=== PATIENT | female | born 1985 | race American Indian/Alaskan Native ===

== ENCOUNTER 2020-06-26 12:35 | Emergency (ER) | payer MEDICAID ==
[2020-06-26] MEDS ORDERED: ONDANSETRON 4 MG ODT TAB PO ONE (14:46)
--- NOTE | 2020-06-26 14:46 | Event Note ---
ED Screening Note ED Screening Note: n/v/d that began yesterday +chills abd cramping +dysuria had a partial hysterectomy on april 22 no fever PMHx none no allergies to meds no recent travel no sick contacts no recent abx This initial assessment/diagnostic orders/clinical plan/treatment(s) is/are subject to change based on patients health status, clinical progression and re- assessment by fellow clinical providers in the ED. Further treatment and workup at subsequent clinical providers discretion. Patient/guardian urged not to elope from the ED as their condition may be serious if not clinically assessed and managed. Initial orders include: labs, UA, zofran ODT
[2020-06-26 15:43] LABS: Basophils % (Auto) 0.2 % (0.0-1.8); Eosinophils % (Auto) 0.1 % (0.0-4.3); Hematocrit 43.7 % (30.3-42.9); Hemoglobin 14.5 gm/dl (10.1-14.3); Lymphocytes # (Auto) 0.5 K/mm3 (1.2-5.4); Lymphocytes % (Auto) 5.6 % (13.4-35.0); Mean Corpuscular HGB Conc 33 % (30-34); Mean Corpuscular Volume 93 fl (79-97); Monocytes # (Auto) 0.9 K/mm3 (0.0-0.8); Monocytes % (Auto) 10.4 % (0.0-7.3); Platelet Count 373 K/mm3 (140-440); Red Blood Count 4.68 M/mm3 (3.65-5.03); Red Cell Distribution Width 16.3 % (13.2-15.2)
[2020-06-26 16:05] LABS: Alanine Aminotransferase 11 units/L (7-56); Albumin 4.6 g/dL (3.9-5); Blood Urea Nitrogen 15 mg/dL (7-17); Calcium 10.4 mg/dL (8.4-10.2); Hemolysis Index 17
[2020-06-26 16:07] LABS: BUN/Creatinine Ratio 21
[2020-06-26 18:45] LABS: Hyaline Casts,Urine 12 /LPF; Mucus,Urine 3+ /HPF
[2020-06-26 18:49] LABS: Bilirubin,Urine NEG (Negative); Blood,Urine SM (Negative); Color,Urine Amber (Yellow); Urobilinogen,Urine < 2.0 mg/dL (<2.0)
[2020-06-26 18:50] LABS: Protein,Urine >500 mg/dL (Negative)
[2020-06-26] MEDS ORDERED: SODIUM CHLORIDE 0.9% 1000 ML 1,000 ML IV ONE (19:28)
[2020-06-26] MEDS ORDERED: FAMOTIDINE 20 MG/2 ML INJ IV ONE (19:28)
[2020-06-26] MEDS ORDERED: diphenhydrAMINE 50 MG/ML VIAL IV ONE (19:28)
[2020-06-26] MEDS ORDERED: MORPHINE 4 MG/1 ML INJ IV ONE (19:28)
[2020-06-26] MEDS ORDERED: METOCLOPRAMIDE 10 MG/2 ML INJ IV ONE (19:28)
--- NOTE | 2020-06-26 21:01 | Emergency Department Report ---
ED N/V/D HPI - General Chief complaint: Nausea/Vomiting/Diarrhea Stated complaint: ABD PAIN/N/V Time Seen by Provider: 06/26/20 14:44 Source: patient Mode of arrival: Ambulatory Limitations: No Limitations - History of Present Illness Initial comments: Patient is a 34-year-old -[place] female with no past medical history and who is status post partial hysterectomy 2 months ago presents to the ED with complaint of acute onset persistent nausea and vomiting with diarrhea and mild diffuse abdominal pain for the last 2 days. Patient states that the symptoms started about 2 days ago after having sexual intercourse with her . Patient also states that she had also taken a laxative for a suspected constipation 24 hours prior to the onset of the symptoms. Patient states that in the last 24 hours she has not been able to keep anything down because of persistent nausea and vomiting and diarrhea. Patient now complains of generalized weakness and fatigue and lack of appetite. Patient denies dizziness, syncope, chest pain, shortness of breath, dysuria, urinary frequency and urgency, vaginal bleeding, vaginal discharge, headache, sore throat, change in vision or hematemesis and hematochezia. MD complaint: nausea, vomiting, diarrhea, abdominal pain -: Sudden, days(s) (2) Description of Vomiting: food contents, watery, bilious Description of Diarrhea: water Associated Abdominal Pain: Yes (diffuse) Location: diffuse Radiation: none Severity: moderate Pain Scale: 5 Quality: cramping, aching Consistency: intermittent Improves with: none Worsens with: eating, vomiting Context: possible food poisoning Associated Symptoms: denies other symptoms, loss of appetite, malaise, nausea/vomiting. denies: myalgias, chest pain, cough, diaphoresis, fever/chills, headaches, rash, dysuria, shortness of breath, syncope, weakness, other - Related Data Previous Rx's Medication Instructions Recorded Last Taken Type Dicyclomine [Bentyl] 20 mg PO Q6H PRN #30 tablet 06/26/20 Unknown Rx Famotidine [Pepcid] 20 mg PO BID #30 tablet 06/26/20 Unknown Rx Ondansetron [Zofran Odt] 4 mg PO Q6HR PRN #20 tab.rapdis 06/26/20 Unknown Rx Allergies Allergy/AdvReac Type Severity Reaction Status Date / Time No Known Allergies Allergy Unverified 06/26/20 19:52 ED Review of Systems ROS: Stated complaint: ABD PAIN/N/V Other details as noted in HPI Constitutional: chills, malaise, weakness. denies: fever Eyes: denies: eye pain, eye discharge, vision change ENT: denies: ear pain, throat pain Respiratory: denies: cough, shortness of breath, wheezing Cardiovascular: denies: chest pain, palpitations Endocrine: no symptoms reported Gastrointestinal: abdominal pain, nausea, vomiting, diarrhea Genitourinary: denies: urgency, dysuria, discharge Musculoskeletal: denies: back pain, joint swelling, arthralgia Skin: denies: rash, lesions Neurological: denies: headache, weakness, paresthesias Psychiatric: denies: anxiety, depression Hematological/Lymphatic: denies: easy bleeding, easy bruising ED Past Medical Hx - Past Medical History Previous Medical History?: No - Surgical History Past Surgical History?: Yes Additional Surgical History: hysterectomy - Social History Smoking Status: Former Smoker Substance Use Type: Alcohol - Medications Home Medications: Home Medications Medication Instructions Recorded Confirmed Last Taken Type Dicyclomine [Bentyl] 20 mg PO Q6H PRN #30 tablet 06/26/20 Unknown Rx Famotidine [Pepcid] 20 mg PO BID #30 tablet 06/26/20 Unknown Rx Ondansetron [Zofran Odt] 4 mg PO Q6HR PRN #20 tab.rapdis 06/26/20 Unknown Rx ED Physical Exam - General Limitations: No Limitations General appearance: alert, in no apparent distress - Head Head exam: Present: atraumatic, normocephalic, normal inspection - Eye Eye exam: Present: normal appearance, PERRL, EOMI Pupils: Present: normal accommodation - ENT ENT exam: Present: normal exam, normal orophraynx, mucous membranes moist, TM's normal bilaterally, normal external ear exam - Neck Neck exam: Present: normal inspection, full ROM - Respiratory Respiratory exam: Present: normal lung sounds bilaterally. Absent: respiratory distress, wheezes, rales, rhonchi, chest wall tenderness, accessory muscle use, decreased breath sounds, prolonged expiratory - Cardiovascular Cardiovascular Exam: Present: regular rate, normal rhythm, normal heart sounds. Absent: systolic murmur, diastolic murmur, rubs, gallop - GI/Abdominal GI/Abdominal exam: Present: soft, normal bowel sounds. Absent: tenderness, guarding, rebound, rigid, hyperactive bowel sounds, hypoactive bowel sounds - Extremities Exam Extremities exam: Present: normal inspection, full ROM, normal capillary refill - Back Exam Back exam: Present: normal inspection, full ROM. Absent: tenderness, CVA tenderness (R), CVA tenderness (L), muscle spasm, paraspinal tenderness, vertebral tenderness - Neurological Exam Neurological exam: Present: alert, oriented X3, CN II-XII intact, normal gait, reflexes normal - Psychiatric Psychiatric exam: Present: normal affect, normal mood - Skin Skin exam: Present: warm, dry, intact, normal color. Absent: rash ED Course Vital Signs 06/26/20 13:09 Temperature 98 F Pulse Rate 68 Respiratory 26 H Rate Blood Pressure 131/111 O2 Sat by Pulse 99 Oximetry ED Medical Decision Making - Lab Data Result diagrams: 06/26/20 15:13 06/26/20 15:13 - Medical Decision Making This is a 34-year-old -[place] female with no past medical history and who is status post partial hysterectomy 2 months ago presents to the ED with complaint of acute onset persistent nausea and vomiting with diarrhea and mild diffuse abdominal pain for the last 2 days. Patient states that the symptoms started about 2 days ago after having sexual intercourse with her . Patient also states that she had also taken a laxative for a suspected constipation 24 hours prior to the onset of the symptoms. Patient states that in the last 24 hours she has not been able to keep anything down because of persistent nausea and vomiting and diarrhea. Patient now complains of generalized weakness and fatigue and lack of appetite. In the ED, patient is alert and oriented x3 and is not in distress. Patient was treated in the ED with antiemetics, antacids and pain medications. Patient also received normal saline 1 L IV bolus x1. Lab test results were reviewed and are all nonactionable. On reevaluation, patient's nausea and vomiting resolved with medications. Pain is well controlled with medications. Patient passed oral fluid challenge in the ED with no nausea or vomiting. Patient was therefore discharged home on antiemetics, antacids and antispasmodic medications, and was advised to maintain a clear liquid diet for 12 to 24 hours, while taking medication and drinking fluids. Patient was advised to follow-up with primary care physician in 3 to 5 days for reevaluation or return to the ED immediately if symptoms get worse. - Differential Diagnosis Gastroenteritis; GERD; UTI; dehydration; anxiety; gastritis Critical care attestation.: If time is entered above; I have spent that time in minutes in the direct care of this critically ill patient, excluding procedure time. ED Disposition Clinical Impression: Viral gastroenteritis, Nausea, vomiting and diarrhea Abdominal pain Qualifiers: Abdominal location: generalized Qualified Code(s): R10.84 - Generalized abdominal pain Disposition: TO HOME OR SELFCARE Is pt being admited?: No Does the pt Need Aspirin: No Condition: Stable Instructions: Viral Gastroenteritis, Adult, [id number], Abdominal Pain, Adult, [id number], Nausea and Vomiting, Adult, [id number], Diarrhea, Adult, [id number] Additional Instructions: All lab test results were reviewed and are all nonactionable. Therefore maintain a clear liquid diet for 12 to 24 hours, drink plenty of fluids, take medication as prescribed and follow-up with your primary care physician in 5 to 7 days for reevaluation. Return to the ED immediately if your symptoms get worse. Prescriptions: Dicyclomine [Bentyl] 20 mg PO Q6H PRN #30 tablet PRN Reason: Abdominal pain Famotidine [Pepcid] 20 mg PO BID #30 tablet Ondansetron [Zofran Odt] 4 mg PO Q6HR PRN #20 tab.rapdis PRN Reason: Nausea Referrals: [facility] [Provider Group] - 3-5 Days Forms: Work/School Release Form(ED) Time of Disposition: 20:58 Print Language: YI
[2020-06-26 21:37] VITALS: BP 130/78
== END 2020-06-26 21:15 | disposition home or self-care (01) ==
LOC: ED 12:35
DX: A08.4 Viral intestinal infection, unspecified (principal); R11.2 Nausea with vomiting, unspecified; R19.7 Diarrhea, unspecified; R10.84 Generalized abdominal pain; Z90.710 Acquired absence of both cervix and uterus; Z87.891 Personal history of nicotine dependence; Z79.899 Other long term (current) drug therapy
CPT/HCPCS: 36415; 80053; 81001; 83690; 85025; 87086; 96361; 96374; 96375; 99284; J1200; J2270; J2765; J7030; Q0162